=== PATIENT | female | born 1965 | race Caucasian/White ===

== ENCOUNTER → 2019-06-24 09:00 | Outpatient (CLI) | payer BC, SELFPAY ==
--- NOTE | 2019-06-24 | DI.MG.S_ITS ---
BILATERAL DIGITAL SCREENING MAMMOGRAM 3D/2D WITH CAD: 06/24/2019 CLINICAL: Routine screening. Comparison is made to exams dated: 01/03/2016 mammogram, 04/21/2017 mammogram, and 05/06/2018 mammogram - [facility] [place]. There are scattered fibroglandular elements in both breasts. Current study was also evaluated with a Computer Aided Detection (CAD) system. No significant masses, calcifications, or other findings are seen in either breast. There has been no significant interval change. IMPRESSION: NEGATIVE There is no mammographic evidence of malignancy. A 1 year screening mammogram is recommended. This exam was interpreted at Station ID: [id number]. NOTE: For mammograms, a report in lay terms will be sent to the patient. Approximately 15% of breast malignancies will not be visualized mammographically. In the management of a palpable breast mass, a negative mammogram must not discourage biopsy of a clinically suspicious lesion. Electronically Signed By: Krista lewis/don:06/26/2019 14:14:48 letter sent: Normal Exam ACR BI-RADS Category 1: Negative 3341F
== END ==
PROVIDERS: PCP Student in an Organized Health Care Education/Training Program; Visit Provider Student in an Organized Health Care Education/Training Program
DX: Z12.31 Encounter for screening mammogram for malignant neoplasm of breast (principal)
CPT/HCPCS: 77063; 77067

== ENCOUNTER → 2020-06-25 12:32 | Outpatient (CLI) | payer BC, SELFPAY ==
--- NOTE | 2020-06-25 | DI.MG.S_ITS ---
BILATERAL DIGITAL SCREENING MAMMOGRAM 3D/2D WITH CAD: 06/25/2020 CLINICAL: Routine screening. Comparison is made to exams dated: 06/24/2019 mammogram - [facility], 05/06/2018 mammogram, and 04/21/2017 mammogram - [facility] [place]. There are scattered fibroglandular elements in both breasts. Current study was also evaluated with a Computer Aided Detection (CAD) system. No significant masses, calcifications, or other findings are seen in either breast. There has been no significant interval change. IMPRESSION: NEGATIVE There is no mammographic evidence of malignancy. A 1 year screening mammogram is recommended. This exam was interpreted at Station ID: [id number]. NOTE: For mammograms, a report in lay terms will be sent to the patient. Approximately 15% of breast malignancies will not be visualized mammographically. In the management of a palpable breast mass, a negative mammogram must not discourage biopsy of a clinically suspicious lesion. Electronically Signed By: Sole quiroga/don:07/02/2020 11:36:50 letter sent: Normal Exam ACR BI-RADS Category 1: Negative 3341F
== END ==
PROVIDERS: PCP Student in an Organized Health Care Education/Training Program; Referring Provider Student in an Organized Health Care Education/Training Program; Visit Provider Student in an Organized Health Care Education/Training Program
DX: Z12.31 Encounter for screening mammogram for malignant neoplasm of breast (principal)
CPT/HCPCS: 77063; 77067

== ENCOUNTER → 2021-06-30 11:51 | Outpatient (CLI) | payer BC, SELFPAY ==
--- NOTE | 2021-06-30 | DI.MG.S_ITS ---
BILATERAL DIGITAL SCREENING MAMMOGRAM 3D/2D WITH CAD: 06/30/2021 CLINICAL: Routine screening. Comparison is made to exams dated: 06/25/2020 mammogram, 06/24/2019 mammogram - [facility], and 05/06/2018 mammogram - [facility] [place]. There are scattered fibroglandular elements in both breasts. Current study was also evaluated with a Computer Aided Detection (CAD) system. No significant masses, calcifications, or other findings are seen in either breast. There has been no significant interval change. IMPRESSION: NEGATIVE There is no mammographic evidence of malignancy. A 1 year screening mammogram is recommended. This exam was interpreted at Station ID: [id number]. NOTE: For mammograms, a report in lay terms will be sent to the patient. Approximately 15% of breast malignancies will not be visualized mammographically. In the management of a palpable breast mass, a negative mammogram must not discourage biopsy of a clinically suspicious lesion. Electronically Signed By: [place] scott/don:06/30/2021 12:32:05 letter sent: Normal Exam ACR BI-RADS Category 1: Negative 3341F
== END ==
PROVIDERS: PCP Student in an Organized Health Care Education/Training Program; Referring Provider Student in an Organized Health Care Education/Training Program; Visit Provider Student in an Organized Health Care Education/Training Program
DX: Z12.31 Encounter for screening mammogram for malignant neoplasm of breast (principal)
CPT/HCPCS: 77063; 77067

== ENCOUNTER 2022-01-06 18:19 | Emergency (ER) | payer BC, SELFPAY ==
[2022-01-06 18:33] VITALS: BP 167/89; PULSE 85; RESP 18; TEMP 36.4; O2SAT 97
--- NOTE | 2022-01-06 18:36 | DI.RAD.S_ITS ---
PROCEDURE: XR ANKLE LT MIN 3V INDICATIONS: fall TECHNIQUE: 3 views of the ankle were acquired. COMPARISON: None. FINDINGS: Bones: No fractures or dislocations. Ankle mortise is normally aligned. No suspicious bony lesions. Soft tissues: No tibiotalar joint effusion. Achilles tendon appears normal. IMPRESSION: No acute fracture. No osseous lesion. If symptoms and/or clinical suspicion for pathology persist, further assessment with repeat, or advanced imaging (e.g., CT, MRI, or bone scan) may be helpful for further assessment. Dictated by: Mariam Trinidad M.D. on 01/06/2022 at 18:46 Approved by: Mariam Trinidad M.D. on 01/06/2022 at 18:46
--- NOTE | 2022-01-06 22:11 | ED.LOWEXIN ---
HPI - Extremity Injury (Lower) General Chief Complaint: Extremity Injury, Lower Stated Complaint: LEFT ANKLE INJURY Time Seen by Provider: 01/06/22 22:10 Source: patient Mode of arrival: Ambulatory History of Present Illness HPI Narrative: 56-year-old female nonsmoker with noncontributory medical history presents for evaluation of a left ankle injury. She had been walking in misjudged a step and inverted her left ankle and now has pain with ambulation, primarily head he lateral malleolus. She denies any numbness, tingling or weakness. She has no foot pain or knee pain. She does have a history of left ankle injury that have been managed by Orthopedics in [facility] last year. She denies any prodromal symptoms. She has had no headache or blurred vision. She denies any chest pain or shortness of breath. She has had no runny nose, sore throat or cough. She denies abdominal pain, diarrhea or constipation Review of Systems Review of Systems Narrative: GENERAL: Denies chills, fatigue, malaise, fever, sweats. HEENT: Denies sinus pain, ear pain, sore throat, difficulty swallowing, dizziness. RESPIRATORY: Denies dyspnea, cough, wheezing, hemoptysis, sputum. CARDIOVASCULAR: Denies chest pain, palpitations, orthopnea, edema, GASTROINTESTINAL: Denies nausea, vomiting, abdominal pain, diarrhea, constipation, melena. : Denies dysuria, frequency, incontinence, hematuria, urinary retention. MUSCULOSKELETAL: See HPI SKIN: Denies rash, skin lesions, or other NEUROLOGIC: Denies weakness, headache, numbness, change in speech, confusion, seizures, incoordination. PSYCHIATRIC: No concerning psychosocial issues. 12 point review of systems is negative except for those stated above Exam Narrative Exam Narrative: GEN: AOx3 and in mild distress EYES: Pupils are equal, round, and reactive to light and accommodation. Extraoccular muscles are intact bilaterally. There is no subconjunctival hemorrhage or exudate. CHEST: Lungs are clear to auscultation bilaterally and free of wheezes, rales, or rhonchi. Heart rate is regular rhythm, there are no murmurs, clicks, rubs, or gallops. There is no chest wall tenderness. ABD: Abdomen is soft and nontender. There is no guarding or rebound. Bowel sounds are normal in all 4 quadrants. There is no mass or organomegaly. EXT: No obvious deformity but there is minimal swelling over the lateral malleolus of left foot with tenderness to palpation. No ligamentous instability is noted, she has negative squeeze test and no pain in the knee or proximal fibula this is closed, isolated and neurovascularly intact SKIN: Warm, pink, and dry. No erythema or rash Initial Vital Signs Initial Vital Signs: Vital Signs Temperature 97.5 F L 01/06/22 18:33 Pulse Rate 85 01/06/22 18:33 Respiratory Rate 18 01/06/22 18:33 Blood Pressure 167/89 H 01/06/22 18:33 Pulse Oximetry 97 01/06/22 18:33 Procedures Orthopedic Splinting/Casting Injury #1: Side: left Lower Extremity Injury Location: ankle Lower Extremity Immobilizer: boot orthosis Other Orthopedic Equipment: crutches Course Orders Ordered: ED Orders 01/06/22 18:36 XR ankle LT min 3V Stat Vital Signs Vital signs: Vital Signs - 8 hr 01/06/22 23:07 Pulse Rate 80 Respiratory Rate 18 Blood Pressure 157/88 H Pulse Oximetry 98 MDM - Extremity Injury (Lower) Imaging Data Extremity x-ray #1: Radiologist's Impression: [address] [address] XRay Report Signed Patient: Nahomi Dan MR#: [id number] : 1965 Acct:[id number] Age/Sex: 56 / F Date of Service: 01/06/22 Loc: ED Accession Number: [id number] ?? Procedure: XR ankle LT min 3V Ordering Provider: Monster Harvey D.O. PROCEDURE:? XR ANKLE LT MIN 3V ? INDICATIONS:? fall ? TECHNIQUE:? 3 views of the ankle were acquired.? ? COMPARISON:? None. ? FINDINGS:? ? Bones:? No fractures or dislocations.? Ankle mortise is normally aligned.? No suspicious bony lesions.? ? Soft tissues:? No tibiotalar joint effusion.? Achilles tendon appears normal.? ? ? IMPRESSION:? No acute fracture. No osseous lesion. If symptoms and/or clinical suspicion for pathology persist, further assessment with repeat, or advanced imaging (e.g., CT, MRI, or bone scan) may be helpful for further assessment. ? Dictated by: Mariam Trinidad M.D. on 01/06/2022 at 18:46 ? ? Approved by: Mariam Trinidad M.D. on 01/06/2022 at 18:46 ? Discharge Plan Departure Patient Disposition: Home Clinical Impression: Ankle sprain and strain Instructions: Ankle Sprain Activity Restrictions/Additional Instructions: *You have been diagnosed with [left ankle sprain strain. As we discussed your x-ray is unremarkable and shows no fracture or dislocation *What to do: *Please continue to take your regular medications as directed. [ ] New medication prescriptions sent to your pharmacy: [ ] [ ] New medication written as a paper prescription [x] Tylenol and occasional Motrin for pain *Please follow up with [Patrick dukes 2-3 days, call for an appointment. Let them know you were seen in the Emergency Department and that we ask that you be seen in follow up. We will electronically transmit a record of today's note if your PCP is in our system *Return to Emergency Department if you should have any new, worsening or concerning symptoms, such as [worsening pain, significant swelling, cold extremities, numbness, tingling, weakness or other bothersome symptoms Use crutches and non-weight bearing until followup Elevated affected body part to decrease swelling. OK to use ice pack on the affected body part. Use for 15-20 minutes each time, for 5-6x per day. If you develop worsening pain, numbness, tingling, discoloration of the affected body part, remove the boot and either see your doctor for an urgent re-assessment, or return to the Emergency Department. Return to the Emergency Department for any new or worsening symptoms. Referrals: Alma Arriola MD [Primary Care Provider] - Visit Report Forms: Patient Portal/API
[2022-01-06 23:07] VITALS: BP 157/88; PULSE 80; RESP 18; O2SAT 98
== END 2022-01-06 23:08 | disposition home or self-care (01) ==
PROVIDERS: Emergency Provider Emergency Medicine; PCP Student in an Organized Health Care Education/Training Program
DX: S93.402A Sprain of unspecified ligament of left ankle, initial encounter (principal); S96.912A Strain of unspecified muscle and tendon at ankle and foot level, left foot, initial encounter; X50.1XXA Overexertion from prolonged static or awkward postures, initial encounter
CPT/HCPCS: 73610; 99282; 99283

== ENCOUNTER → 2022-07-09 07:44 | Outpatient (CLI) | payer BC, SELFPAY ==
--- NOTE | 2022-07-09 | DI.MG.S_ITS ---
BILATERAL DIGITAL SCREENING MAMMOGRAM 3D/2D WITH CAD: 07/09/2022 CLINICAL: Routine screening. Comparison is made to exams dated: 06/30/2021 mammogram, 06/25/2020 mammogram, 06/24/2019 mammogram - [facility], and 04/21/2017 mammogram - [facility] [place]. There are scattered areas of fibroglandular density in both breasts (category b / 25%-50% glandular tissue). Current study was also evaluated with a Computer Aided Detection (CAD) system. No significant masses, calcifications, or other findings are seen in either breast. There has been no significant interval change. IMPRESSION: NEGATIVE There is no mammographic evidence of malignancy. A 1 year screening mammogram is recommended. Based on the Tyrer Cuzick model (a risk assessment model) the patient's lifetime risk is 9.1% and her 10 year risk is 2.8%. According to the ACR, ACS, and NCCN guidelines, an annual breast MRI exam along with mammogram is recommended if the patient's lifetime risk is 20% or greater. This exam was interpreted at Station ID: [id number]. NOTE: For mammograms, a report in lay terms will be sent to the patient. Approximately 15% of breast malignancies will not be visualized mammographically. In the management of a palpable breast mass, a negative mammogram must not discourage biopsy of a clinically suspicious lesion. Electronically Signed By: Mitesh wick/don:07/09/2022 08:23:10 letter sent: Normal Exam ACR BI-RADS Category 1: Negative 3341F
== END ==
PROVIDERS: PCP Registered Nurse; Referring Provider Student in an Organized Health Care Education/Training Program; Visit Provider Student in an Organized Health Care Education/Training Program
DX: Z12.31 Encounter for screening mammogram for malignant neoplasm of breast (principal)
CPT/HCPCS: 77063; 77067

== ENCOUNTER → 2023-07-12 | Outpatient (CLI) | payer BC, SELFPAY ==
--- NOTE | 2023-07-12 | DI.MG.S_ITS ---
BILATERAL DIGITAL SCREENING MAMMOGRAM 3D/2D WITH CAD: 07/12/2023 CLINICAL: Routine screening. Comparison is made to exams dated: 07/09/2022 mammogram, 06/30/2021 mammogram, and 06/25/2020 mammogram - [facility]. Both breasts are almost entirely fatty (category a/<25% glandular tissue). Current study was also evaluated with a Computer Aided Detection (CAD) system. No significant masses, calcifications, or other findings are seen in either breast. There has been no significant interval change. IMPRESSION: NEGATIVE There is no mammographic evidence of malignancy. A 1 year screening mammogram is recommended. Based on the Tyrer Cuzick model (a risk assessment model) the patient's lifetime risk is 6.0% and her 10 year risk is 1.9%. According to the ACR, ACS, and NCCN guidelines, an annual breast MRI exam along with mammogram is recommended if the patient's lifetime risk is 20% or greater. This exam was interpreted at Station ID: [id number]. NOTE: For mammograms, a report in lay terms will be sent to the patient. Approximately 15% of breast malignancies will not be visualized mammographically. In the management of a palpable breast mass, a negative mammogram must not discourage biopsy of a clinically suspicious lesion. Electronically Signed By: Krista lewis/don:07/13/2023 12:30:36 letter sent: Normal Exam ACR BI-RADS Category 1: Negative 3341F
== END ==
LOC: MAMMO 16:48
PROVIDERS: PCP Registered Nurse; Referring Provider Registered Nurse; Visit Provider Registered Nurse
DX: Z12.31 Encounter for screening mammogram for malignant neoplasm of breast (principal)
CPT/HCPCS: 77063; 77067

== ENCOUNTER → 2024-06-08 | Outpatient (CLI) | payer BC, SELFPAY ==
--- NOTE | 2024-06-08 11:15 | DI.MRI.S_ITS ---
PROCEDURE: MR HEAD/BRAIN WO/W CON INDICATIONS: vertigo TECHNIQUE: Noncontrast axial T1 spin echo, axial T2 fast spin echo, sagittal and axial FLAIR, coronal T2 fast spin echo, axial gradient echo, axial diffusion and ADC through the brain. After the administration of contrast, axial and coronal and sagittal 3D VIBE or T1 spin echo with fat saturation through the brain. COMPARISON: None. FINDINGS: Image quality: Excellent. CSF Spaces: Basal cisterns are patent. No extra-axial fluid collections. Ventricles are normal in size and shape. Brain: No midline shift. No intracranial bleeds or masses. No abnormal intracranial enhancement. The brainstem appears normal. Diffusion-weighted images demonstrate no acute infarct. No chronic ischemic insults. Normal intravascular flow voids are present. In this patient with this given history, scrutiny is given to cerebellopontine angle cisterns and to the internal auditory canals. To the limits of this standard protocol study, no masses or abnormal enhancement can be seen within these regions. Skull and face: Calvarial marrow is normal in signal. Mild to moderate right exophthalmos can be seen. No associated mass or muscular hypertrophy can be seen. Note is made of bilateral lens replacements. Sinuses: Sinuses and mastoids appear clear. IMPRESSION: No imaging explanation is found for this patient's presenting symptoms. No masses or abnormal enhancement can be seen. Mild to moderate right exophthalmos noted. Dictated by: Robel Polanco M.D. on 06/08/2024 at 13:04 Approved by: Robel Polanco M.D. on 06/08/2024 at 13:07
== END ==
PROVIDERS: Family Provider Registered Nurse; PCP Registered Nurse; Referring Provider Registered Nurse; Visit Provider Registered Nurse
DX: R42 Dizziness and giddiness (principal); H05.20 Unspecified exophthalmos
CPT/HCPCS: 70553; A9579

== ENCOUNTER 2024-07-13 12:15 | Outpatient (RCR) | payer BC, SELFPAY ==
--- NOTE | 2024-07-11 15:52 | PT.OIE ---
Current Diagnoses Benign paroxysmal vertigo, right ear (07/11/24) Dizziness and giddiness (07/11/24) Visit Care Team Role Provider Type KAREN Johnson Attending Provider Non-Staff Family Provider Primary Care Provider Referring Provider Specialty: Family Practice Address: [address] [place] [address], [facility], [place], [address] Email: Physical Therapy Initial Evaluation PT-OP-A Visit Information Start: 07/11/24 13:48 Freq: Status: Active Protocol: Document 07/11/24 12:15 DCW (Rec: 07/11/24 13:50 DCW [id number]) Out-Patient Physical Therapy Visit Information Visit Information Visit Type Initial Evaluation Visit Start Time 12:15 Visit Stop Time 13:00 Visit Number 1 Number of INTEGRATION SOFTWARE ENGINEER Visits 0 Evaluation Information Evaluation Date 07/11/24 PT-OP-B Current Condition Start: 07/11/24 13:48 Freq: Status: Active Protocol: Document 07/11/24 12:15 DCW (Rec: 07/11/24 15:52 DCW [id number]) Current Condition History of Current Condition Onset Date Seven week history Current Complaints Position-dependent dizziness History of Current Condition Pt is a 59 year old female complaining of a seven week history of motion-induced vertigo. Pt reports episodes last a few seconds. Symptoms are provoked by getting into/ out of bed and fast head movements. Pt denies recent hearing changes, tinnitus, diplopia, dysarthria, discoordination, or decreased mentation/consciousness. Pt reports symptoms are waxing/ waning in nature. Pt denies hx of arrhythmia, head trauma, seizure, migraines, back/neck problems, CVA, anxiety/panic disorders, depression, or excessive smoking or drinking. PT-OP-C Subjective Start: 07/11/24 13:48 Freq: Status: Active Protocol: Document 07/11/24 12:15 DCW (Rec: 07/11/24 15:52 DCW [id number]) OP-PT Subjective Patient Comments Patient Comments It's actually been a good week so far. Last week was really bad. Patient Questionnaires Dizziness Handicap Inventory DHI Score 26% Other Questionnaire Name and Score Fall Efficacy Scale- International: PT-OP-O Vestibular Start: 07/11/24 13:48 Freq: Status: Active Protocol: Document 07/11/24 12:15 DCW (Rec: 07/11/24 13:50 DCW [id number]) Vestibular Assessment Auditory Tests Marcus Test Within normal limits Rinne Test Negative Air Conduction Results Equal Visual Testing Smooth Pursuits Horizontal WNL Smooth Pursuits Vertical WNL Saccades Horizontal WNL Heave Test Positive Bilateral Thrust Head Positive Bilateral Positional Testing [place]-Hallpike Positive Right,Upbeating,< 60 Seconds PT-OP-Q Treatments Start: 07/11/24 13:48 Freq: Status: Active Protocol: Document 07/11/24 12:15 DCW (Rec: 07/11/24 13:51 DCW [id number]) Canalithic Repositioning BPPV Treatment Latrice Affected Canal(s) Right Posterior Reps x2 Comments Modified Latrice PT-OP-T Assessment and Plan Start: 07/11/24 13:48 Freq: Status: Active Protocol: Document 07/11/24 12:15 DCW (Rec: 07/11/24 15:52 DCW [id number]) Physical Therapy Assessment Rehab Potential Rehabilitation Potential Excellent Evaluation Complexity Number of Personal Factors/Comorbidities 3 or More Number of Body Systems Impaired 4 or More Clinical Presentation at Evaluation Unstable Impairments Impairments Balance,Functional Activities, Functional Mobility,Vestibular Goals Two Impairment Positive right [place]-Hallpike Medical Lab Director Goal (LTG) Pt to present with negative positional testing bilaterally to demonstrate successful management of BPPV symptoms LTG Duration 08/11/24 One Impairment Pt complains of positional vertigo with bed mobility Nursing Home Goal (LTG) Pt to report elimination of position-dependent symptoms when performing bed mobility LTG Duration 08/11/24 Assessment Summary Assessment During right [place]-Hallpike test , pt complained of vertigo and demonstrated up-beating, torsional nystagmus lasting approximately 10 seconds, consistent with diagnosis of right-sided posterior canal BPPV, canalithiasis-type. Pt was treated with a right-sided modified Latrice maneuver. Pt complained of symptoms in the first and third position, which is normally indicative of a successful treatment. Further positional testing was negative. Pt was educated on BPPV, expectations for treatment, possible recurrence (BPPV has a ~50% recurrence rate in the five years following treatment), and post -Latrice restrictions. Pt to return in ~1 week for a follow -up appointment, and intermittently afterward as indicated for treatment of BPPV. Physical Therapy Plan Frequency and Duration Frequency of Treatment 1-2x/week Plan of Care Start Date 07/11/24 Plan of Care End Date 08/11/24 Therapeutic Interventions Therapeutic Interventions Balance Training,Canalithic Repositioning,Home Exercise Program,Manual Therapy, Neuromuscular Re-education, Patient/Caregiver Education, Self-Care/Home Management,Soft Tissue Mobilization, Therapeutic Activities, Therapeutic Exercises, Vestibular Rehabilitation Next Visit Focus/Plan Next Note Type Treatment Note Next Visit Plan Positional testing, CRM as indicated
--- NOTE | 2024-07-11 15:53 | PT.OPPOC ---
Physical, Occupational & Speech Therapy At [facility] Current Diagnoses Benign paroxysmal vertigo, right ear (07/11/24) Dizziness and giddiness (07/11/24) Visit Care Team Role Provider Type KAREN Johnson Attending Provider Non-Staff Family Provider Primary Care Provider Referring Provider Specialty: Family Practice Address: [address] [place] [address] [place], [place], [facility] Email: Plan Of Care PT-OP-B Current Condition Start: 07/11/24 13:48 Freq: Status: Active Protocol: Document 07/11/24 12:15 DCW (Rec: 07/11/24 15:52 DCW [id number]) Current Condition History of Current Condition Onset Date Seven week history Current Complaints Position-dependent dizziness History of Current Condition Pt is a 59 year old female complaining of a seven week history of motion-induced vertigo. Pt reports episodes last a few seconds. Symptoms are provoked by getting into/ out of bed and fast head movements. Pt denies recent hearing changes, tinnitus, diplopia, dysarthria, discoordination, or decreased mentation/consciousness. Pt reports symptoms are waxing/ waning in nature. Pt denies hx of arrhythmia, head trauma, seizure, migraines, back/neck problems, CVA, anxiety/panic disorders, depression, or excessive smoking or drinking. PT-OP-T Assessment and Plan Start: 07/11/24 13:48 Freq: Status: Active Protocol: Document 07/11/24 12:15 DCW (Rec: 07/11/24 15:52 DCW [id number]) Physical Therapy Assessment Rehab Potential Rehabilitation Potential Excellent Evaluation Complexity Number of Personal Factors/Comorbidities 3 or More Number of Body Systems Impaired 4 or More Clinical Presentation at Evaluation Unstable Impairments Impairments Balance,Functional Activities, Functional Mobility,Vestibular Goals Two Impairment Positive right [place]-Hallpike [facility] Goal (LTG) Pt to present with negative positional testing bilaterally to demonstrate successful management of BPPV symptoms LTG Duration 08/11/24 One Impairment Pt complains of positional vertigo with bed mobility Head Cashier Goal (LTG) Pt to report elimination of position-dependent symptoms when performing bed mobility LTG Duration 08/11/24 Assessment Summary Assessment During right [place]-Hallpike test , pt complained of vertigo and demonstrated up-beating, torsional nystagmus lasting approximately 10 seconds, consistent with diagnosis of right-sided posterior canal BPPV, canalithiasis-type. Pt was treated with a right-sided modified Latrice maneuver. Pt complained of symptoms in the first and third position, which is normally indicative of a successful treatment. Further positional testing was negative. Pt was educated on BPPV, expectations for treatment, possible recurrence (BPPV has a ~50% recurrence rate in the five years following treatment), and post -Latrice restrictions. Pt to return in ~1 week for a follow -up appointment, and intermittently afterward as indicated for treatment of BPPV. Physical Therapy Plan Frequency and Duration Frequency of Treatment 1-2x/week Plan of Care Start Date 07/11/24 Plan of Care End Date 08/11/24 Therapeutic Interventions Therapeutic Interventions Balance Training,Canalithic Repositioning,Home Exercise Program,Manual Therapy, Neuromuscular Re-education, Patient/Caregiver Education, Self-Care/Home Management,Soft Tissue Mobilization, Therapeutic Activities, Therapeutic Exercises, Vestibular Rehabilitation Next Visit Focus/Plan Next Note Type Treatment Note Next Visit Plan Positional testing, CRM as indicated Plan of Care Dates Plan of Care Start Date 07/11/24 Plan of Care End Date 08/11/24 Electronically Signed by: Lorenzo Vyas, PT 07/11/24 9622 If you are in agreement with this Plan of Care, please return a signed and dated copy. I have reviewed this Plan of Care and certify that the skilled therapy services above are required to meet the patient?s needs. Physician Signature Date Printed Name and Credentials Clinical Instructor Signature Printed Name and Credentials
--- NOTE | 2024-07-13 12:35 | PT.OTN ---
Current Diagnoses Benign paroxysmal vertigo, right ear (07/13/24) Dizziness and giddiness (07/13/24) Physical Therapy Treatment Note PT-OP-A Visit Information Start: 07/11/24 13:48 Freq: Status: Active Protocol: Document 07/13/24 12:15 DCW (Rec: 07/13/24 12:34 DCW [id number]) Out-Patient Physical Therapy Visit Information Visit Information Visit Type Discharge Summary Visit Start Time 12:15 Visit Stop Time 12:25 Visit Number 2 Number of HUMAN PERFORMANCE PROFESSOR Visits 0 Evaluation Information Evaluation Date 07/11/24 PT-OP-B Current Condition Start: 07/11/24 13:48 Freq: Status: Active Protocol: Document 07/11/24 12:15 DCW (Rec: 07/11/24 15:52 DCW [id number]) Current Condition History of Current Condition Onset Date Seven week history Current Complaints Position-dependent dizziness History of Current Condition Pt is a 59 year old female complaining of a seven week history of motion-induced vertigo. Pt reports episodes last a few seconds. Symptoms are provoked by getting into/ out of bed and fast head movements. Pt denies recent hearing changes, tinnitus, diplopia, dysarthria, discoordination, or decreased mentation/consciousness. Pt reports symptoms are waxing/ waning in nature. Pt denies hx of arrhythmia, head trauma, seizure, migraines, back/neck problems, CVA, anxiety/panic disorders, depression, or excessive smoking or drinking. PT-OP-C Subjective Start: 07/11/24 13:48 Freq: Status: Active Protocol: Document 07/13/24 12:15 DCW (Rec: 07/13/24 12:34 DCW [id number]) OP-PT Subjective Patient Comments Patient Comments No symptoms since last visit, notes she was able to do sit- ups with her wellness trainer this morning, feeling good. PT-OP-O Vestibular Start: 07/11/24 13:48 Freq: Status: Active Protocol: Document 07/13/24 12:15 DCW (Rec: 07/13/24 12:34 DCW [id number]) Vestibular Assessment Positional Testing [place]ia-Hallpike Negative Left,Negative Right PT-OP-Q Treatments Start: 07/11/24 13:48 Freq: Status: Active Protocol: Document 07/13/24 12:15 DCW (Rec: 07/13/24 12:34 DCW [id number]) Manual Therapy Treatment Consent Patient gave verbal consent for manual Yes treatment Other Other Manual Treatments Positional testing PT-OP-T Assessment and Plan Start: 07/11/24 13:48 Freq: Status: Active Protocol: Document 07/13/24 12:15 DCW (Rec: 07/13/24 12:34 DCW [id number]) Physical Therapy Assessment Impairments Impairments Balance,Functional Activities, Functional Mobility,Vestibular Goals Two Impairment Positive right [place]-Hallpike Retirement Goal (LTG) Pt to present with negative positional testing bilaterally to demonstrate successful management of BPPV symptoms LTG Duration Met One Impairment Pt complains of positional vertigo with bed mobility Retirement Goal (LTG) Pt to report elimination of position-dependent symptoms when performing bed mobility LTG Duration Met Progress Towards Goals Progress Towards Goals Goals Met Assessment Summary Assessment Pt positional testing entirely negative today. Pt no longer presenting with symptoms of BPPV. Pt appropriate for discharge from skilled vestibular therapy at this time. Pt understands there is a chance of recurrence of BPPV , and will need a new referral if that occurs. Physical Therapy Plan Frequency and Duration Frequency of Treatment 1-2x/week Plan of Care Start Date 07/11/24 Plan of Care End Date 08/11/24 Therapeutic Interventions Therapeutic Interventions Balance Training,Canalithic Repositioning,Home Exercise Program,Manual Therapy, Neuromuscular Re-education, Patient/Caregiver Education, Self-Care/Home Management,Soft Tissue Mobilization, Therapeutic Activities, Therapeutic Exercises, Vestibular Rehabilitation Discharge Physical Therapy Discharge Reasons Goals Met Next Visit Focus/Plan Next Note Type Discharge Summary
== END 2024-07-27 09:00 | disposition home or self-care (01) ==
LOC: PHYS 12:15
PROVIDERS: Family Provider Registered Nurse; PCP Registered Nurse; Referring Provider Registered Nurse; Visit Provider Registered Nurse
DX: H81.11 Benign paroxysmal vertigo, right ear (principal)
CPT/HCPCS: 95992; 97140; 97163

== ENCOUNTER → 2025-06-21 10:52 | Outpatient (CLI) | payer BC, SELFPAY ==
--- NOTE | 2025-06-21 10:53 | DI.MG.S_ITS ---
MM screening mammo BI: 06/21/2025. BI-RADS: 1 CLINICAL: 59-year old female for bilateral screening mammogram. Tyrer-Cuzick lifetime risk of 7.2%. No personal or first-degree family history of breast cancer. PRIOR EXAMS 07/12/2023, 07/09/2022, 06/30/2021, 06/25/2020, MAMMOGRAPHY TECHNIQUE: 2D and 3D (tomosynthesis) digital mammographic views obtained, with additional images as needed for full coverage. Current study was also evaluated with a Computer Aided Detection (CAD) system. DENSITY B. There are scattered areas of fibroglandular density. MAMMOGRAPHY FINDINGS Bilateral: No suspicious mass, asymmetry, microcalcification, or other abnormality seen. IMPRESSION: * No evidence of malignancy. RECOMMENDATIONS Bilateral * Annual screening mammography. OVERALL ASSESSMENT CATEGORY BI-RADS-1: Negative. The [employer] recommends annual screening mammography beginning at age 40 for women with average risk of breast cancer. ELECTRONICALLY SIGNED: Jeff Perez M.D. on 06/22/2025 at 07:21:16 AM PT Interpreting Station ID: [id number]
== END ==
PROVIDERS: Family Provider Registered Nurse; PCP Registered Nurse; Referring Provider Registered Nurse; Visit Provider Registered Nurse
DX: Z12.31 Encounter for screening mammogram for malignant neoplasm of breast (principal)
CPT/HCPCS: 77063; 77067

== ENCOUNTER → 2025-07-04 09:40 | Outpatient (CLI) | payer BC, SELFPAY ==
--- NOTE | 2025-07-04 09:43 | DI.RAD.S_ITS ---
PROCEDURE: XR DEXA AXIAL SKELETON INDICATIONS: osteoporosis screening COMPARISON: None. FINDINGS: Lumbar Spine: Bone mineral density 0.994 g/cm2, T score -0.5. Left Femoral Neck: Bone mineral density 0.729 g/cm2, T score -1.1. Left Hip: Bone mineral density 0.932 g/cm2, T score -0.1. Fracture Risk Calculation (when applicable): 10-year fracture risk of a major osteoporotic fracture 6.6 percent and of a hip fracture 0.4 percent. (T score greater or equal to -1.0 to: NORMAL) (T score from -1.1 to -2.4: OSTEOPENIA) (T score less than or equal to -2.5: OSTEOPOROSIS) IMPRESSION: Osteopenia. Follow-up guidelines as follows: Osteoporosis: Consider a repeat DEXA and Vertebral Fracture Assessment (VFA) exam in 2 years or sooner if medically necessary, to reassess this patient's status. Osteopenia: Consider a repeat DEXA in 2-3 years to reassess this patient's status, or if there is a new clinical indication. Normal: Consider a repeat DEXA in 5 years or sooner, or if there is a new clinical indication. All treatment decisions require clinical judgment and consideration of individual patient factors, including patient preferences, comorbidities, previous drug use, risk factors not captured in the FRAX model (e.g., frailty, falls, vitamin D deficiency, increased bone turnover, interval significant decline in bone density ) and possible under- or over-estimation of fracture risk by FRAX. In addition, the NOF Guide recommends that FDA-approved medical therapies be considered in postmenopausal women and men age >= 50 years with a: * Hip or vertebral (clinical or morphometric) fracture * T-score of <=-2.5 at the spine or hip * Ten-year fracture probability by FRAX of >= 3% for hip fracture or >=20% for major osteoporotic fracture. Dictated by: Randy Rayo M.D. on 07/04/2025 at 10:54 Approved by: Randy Rayo M.D. on 07/04/2025 at 10:55
== END ==
LOC: RAD 09:42
PROVIDERS: Family Provider Registered Nurse; PCP Registered Nurse; Referring Provider Registered Nurse; Visit Provider Registered Nurse
DX: Z13.820 Encounter for screening for osteoporosis (principal); M85.852 Other specified disorders of bone density and structure, left thigh; Z78.0 Asymptomatic menopausal state
CPT/HCPCS: 77080